=== PATIENT | female | born 2000 | race African-American/Black ===

== ENCOUNTER 2023-12-26 15:02 | Outpatient (CLI) | payer OTHER, SELFPAY ==
[2023-12-26 15:41] LABS: Cholesterol 185 mg/dL (0-200); HDL Direct 47 mg/dL; Triglycerides 175 mg/dL (<150)
[2023-12-26 15:52] LABS: LDL Cholesterol Direct 98 mg/dL
[2023-12-26 17:07] LABS: HIV 1/2 Ab P24 Ag Result Negative (Negative)
[2023-12-26 17:53] LABS: Hemoglobin A1C 5.6 % (<5.7)
[2023-12-26 18:06] LABS: Rapid Plasma Reagin Non-Reactive (NonReactive)
[2023-12-28 01:48] LABS: LH 10.2 mIU/mL; Progesterone <0.5 ng/mL
[2023-12-30 11:02] LABS: Testosterone Free 15.4 pg/mL (0.1-6.4); Testosterone Total 124 ng/dL (2-45)
== END 2023-12-26 15:03 | disposition home or self-care (01) ==
LOC: ANHLAB 15:04
PROVIDERS: PCP Internal Medicine; Visit Provider Obstetrics & Gynecology
DX: N92.6 Irregular menstruation, unspecified (principal)
CPT/HCPCS: 36415; 80061; 83002; 83036; 84144; 84402; 84403; 84443; 86592; 86703; G0432

== ENCOUNTER 2025-03-30 14:46 | Emergency (ER) | payer OTHER, SELFPAY ==
--- NOTE | ~2025-03-30 | XR_ITS ---
XR abdomen/kub 1V 03/30/2025 15:15 INDICATION: Left flank pain TECHNIQUE: KUB COMPARISON: None FINDINGS: Bowel gas pattern is normal. There is no evidence of free air, mass, organomegaly, ascites or obstruction. No abnormal calculi are seen. The bones appear intact. IMPRESSION: 1: No acute abdominal abnormality identified. Reviewed, dictated and finalized at location O.
--- NOTE | 2025-03-30 14:47 | ED.FEMALEGU ---
HPI - Female Genitourinary General Chief complaint: Urogenital-Female Stated complaint: Kidney Pain Time Seen by Provider: 03/30/25 15:00 Source: patient Mode of arrival: ambulatory Limitations: no limitations History of Present Illness HPI Narrative: Tamara is a 24-year-old female patient presenting to the clinic today with complaints of left flank pain 2-3 days. She reports pain has been intermittent however sits yesterday pain is been pretty constant/dull ache. 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 Rates her pain a 4-5/10. Last took ibuprofen last night for symptoms. Denies any urinary symptoms or blood in her urine. No history of kidney stones in the past. Last menstrual period was completed yesterday. Denies any vaginal discharge or odor. No concern for STIs. Related Data Home Medications ?Medication ?Instructions ?Recorded ?Confirmed ?Last Taken ?Type cholecalciferol (vitamin D3) 125 03/30/25 Unknown History mcg (5,000 unit) capsule fluoxetine 10 mg tablet mg 03/30/25 Unknown History semaglutide 0.25 mg or 0.5 mg (2 mg subcut 03/30/25 Unknown History mg/3 mL) subcutaneous pen injector (Ozempic) Allergies Allergy/AdvReac Type Severity Reaction Status Date / Time No Known Allergies Allergy Verified 03/30/25 14:49 Review of Systems Review of Systems: Pertinent positives per HPI. Patient denies any fever, chills, rash, headache, visual changes, dizziness, cough, runny nose, sore throat, shortness of breath, chest pain, palpitations, nausea, vomiting, diarrhea, constipation, abdominal pain, or any urinary issues. REPLACED BY [facility] Past Medical History Medical History Depression Anxiety PTSD (post-traumatic stress disorder) ADHD Metabolic syndrome Family History Family History Mother Hypertension Father Family history of type 1 diabetes mellitus Social History Social History Smoking status: Never smoker Second hand tobacco smoke exposure: No Alcohol intake: never Comments At the time of my signature, I reviewed and agree with the nursing past medical, surgical, social, and family history. There is no relevant family history pertinent to the patient complaint. Exam Narrative: General: Well-developed, morbidly obese, in no apparent distress. Head: Normocephalic, atraumatic. Cardio: Regular rate and rhythm, s1 and s2 normal, no murmur appreciated. Resp: Clear to auscultation bilaterally, no rhonchi, rales, wheezing or rubs. Abdomen: Soft, pliable, bowel sounds present in all quadrants, non-tender to palpation, no organomegly, left mild CVAT tenderness. Course Course Emergency Course: Portions of this record may have been created with voice recognition software. Level of Care: Express Care Visit Vital Signs Vital signs: Vital Signs Temperature 36.4 C 03/30/25 14:54 Pulse Rate 80 03/30/25 14:54 Respiratory Rate 18 03/30/25 14:54 Blood Pressure 123/87 03/30/25 14:54 Pulse Oximetry 100 03/30/25 14:54 Temperature 36.4 C 03/30/25 14:54 Pulse Rate 80 03/30/25 14:54 Respiratory Rate 18 03/30/25 14:54 Blood Pressure 123/87 03/30/25 14:54 Pulse Oximetry 100 03/30/25 14:54 Vital signs reviewed MDM - Female Genitourinary MDM Narrative Medical decision making narrative: At the time of visit patient is resting comfortably on the exam table. Patient appears to be nontoxic. Complaints of left flank pain 2-3 days. She reports pain has been intermittent however sits yesterday pain is been pretty constant/dull ache. 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 Rates her pain a 4-5/10. Last took ibuprofen last night for symptoms. Denies any urinary symptoms or blood in her urine. No history of kidney stones in the past. Last menstrual period was completed yesterday. Denies any vaginal discharge or odor. No concern for STIs. On exam patient has mild left-sided CVA tenderness. Urine dip and KUB x-ray were ordered. Labs: Urine positive for nitrates, protein, and blood. We will send urine for culture Diagnostics: KUB x-ray was performed to rule out stone. X-ray was negative for any acute abdomen pathology or sign of stone Plan: I suspect patient has UTI with flank pain possible early pyelonephritis. Prescription for Bactrim DS sent to the pharmacy. Supportive measures were discussed with the patient and they voiced understanding discharge instructions and agrees to treatment plan. Return precautions reviewed Differential Diagnosis Differential diagnosis: Likely urinary tract infection, cystitis and other (Pyelonephritis, ureterolithiasis, nephrolithiasis) Lab Data Labs: Lab Results 03/30/25 Range/Units 15:00 POC Urine Color Yellow POC Urine Clarity Clear POC Urine pH 6.0 POC Ur Specif [place] 1.020 POC Urine Protein 1+ (Negative) POC Ur Glucose (UA) Negative (Negative) POC Urine Ketones Negative (Negative) POC Urine Blood 1+ (Negative) POC Urine Nitrite Positive (Negative) POC Urine Bilirubin Negative (Negative) POC Urine Urobilinogen 0.2 POC U Leukocyte Esteras Negative (Negative) Imaging Data Radiologist's impression: ITS Impressions Abdomen X-Ray 03/30/25 15:25 IMPRESSION: 1: No acute abdominal abnormality identified. Discharge Plan Discharge Clinical Impression: Acute left flank pain UTI (urinary tract infection) Qualifiers: Urinary tract infection type: acute cystitis Hematuria presence: with hematuria Qualified Code(s): N30.01 - Acute cystitis with hematuria Patient Disposition: Home Condition: Stable Instructions: Antibiotic Form, Urinary Tract Infection in Women (ED), Flank Pain (ED) Additional Instructions: Urine positive for blood, protein, and nitrates. We will send urine for culture. KUB x-ray shows no evidence of a kidney/ureteral stone Take Bactrim as prescribed May take Tylenol/Motrin as needed for pain as per bottle directions Increase fluids and stay well hydrated Wipe front to back. May use wet wipes. Avoid tub baths If sexually active- pee before and after intercourse. Wear cotton panties Avoid tight clothing up against the genitals Follow up with your PCP in 1 week if symptoms persist. Patient Language: Ukrainian Prescriptions: New sulfamethoxazole-trimethoprim [Bactrim DS] 800-160 mg tablet 1 tablet PO Q12H 7 Days Qty: 14 0RF No Action fluoxetine 10 mg tablet cholecalciferol (vitamin D3) 125 mcg (5,000 unit) capsule Ozempic 0.25 mg or 0.5 mg (2 mg/3 mL) pen injector SUBCUT norethindrone-e.estradiol-iron [Junel FE 08/24 (28)] 1 mg-20 mcg (21)/75 mg (7) tablet 1 tablet PO DAILY Qty: 84 3RF Follow-up/Referrals: PHYSICIAN,EMOTIONAL DISABILITIES TEACHER [Primary Care Provider, Internal Medicine] Time of Disposition: 15:30 Quality NIHSS Nursing Documentation ED NIHSS nursing documentation: reviewed/agree
[2025-03-30 14:54] VITALS: BP 123/87; PULSE 80; RESP 18; TEMP 36.4; O2SAT 100
[2025-03-30 15:05] LABS: EDUAAPPEAR Clear; EDUABILI Negative (Negative); EDUABLOOD 1+ (Negative); EDUACOLOR1 Yellow; EDUAGLUCOSE Negative (Negative); EDUAKETONE Negative (Negative); EDUALEUKO Negative (Negative); EDUANITRATE Positive (Negative); EDUAPH 6.0; EDUAPROTEIN 1+ (Negative); EDUASPGRAVITY 1.020; EDUAUROBILI 0.2
== END 2025-03-30 15:32 | disposition home or self-care (01) ==
PROVIDERS: Emergency Provider Nurse Practitioner Family
DX: N30.01 Acute cystitis with hematuria (principal); F41.8 Other specified anxiety disorders; F43.10 Post-traumatic stress disorder, unspecified; F90.9 Attention-deficit hyperactivity disorder, unspecified type; Z83.3 Family history of diabetes mellitus
CPT/HCPCS: 74018; 81003; 87086; 99213; G0463